=== PATIENT | male | born 1930 | race Caucasian/White ===

== ENCOUNTER 2018-02-20 10:58 | Emergency (ER) | payer MEDICARE ==
[2018-02-20 11:21] LABS: BASOPHILS % (AUTO) 0.5 % (0.0-5.0); LYMPHOCYTES % (AUTO) 11.9 % (21.0-51.0); MEAN CORPUSCULAR HEMOGLOBIN 30.9 pg (27.0-33.0); MEAN CORPUSCULAR HGB CONC 34.3 g/dL (32.0-36.0); MEAN CORPUSCULAR VOLUME 90.2 fL (79-99); MONOCYTES % (AUTO) 5.2 % (3.0-13.0); NEUTROPHILS % (AUTO) 78.4 % (40.0-77.0); PLATELET COUNT (AUTO) 98 K/uL (130-400); RED BLOOD CELL COUNT(AUTO) 4.55 MIL/uL (4.50-6.20); RED CELL DISTRIBUTION WIDTH 14.5 % (11.0-15.5); WHITE BLOOD COUNT (AUTO) 7.4 K/uL (4.8-10.8)
[2018-02-20 11:31] LABS: CREATININE 1.8 mg/dL (0.5-1.5); POTASSIUM 4.4 mmol/L (3.5-5.1)
[2018-02-20 11:44] LABS: ALBUMIN 3.8 g/dL (3.5-5.0); CREATINE KINASE MB 2.2 ng/mL (0.5-3.6); TOTAL PROTEIN, SERUM 7.5 g/dL (6.0-8.3)
[2018-02-20 11:50] LABS: INR 1.33 (0.85-1.15); PARTIAL THROMBOPLASTIN TIME 30.6 SEC (26.3-35.5); PROTHROMBIN TIME 13.9 SEC (9.6-11.6)
[2018-02-20 12:04] LABS: B-TYPE NATRIURETIC PEPTIDE 325 pg/mL (0-100)
[2018-02-20] MEDS ORDERED: FUROSEMIDE 10 MG/ML 2ML VIAL ONE (12:43)
[2018-02-20] MEDS ORDERED: FUROSEMIDE 10 MG/ML 4ML VIAL ONE (12:43)
== END 2018-02-20 13:19 | disposition home or self-care (01) ==
LOC: EDH 10:58
DX: R51 Headache (principal); R07.9 Chest pain, unspecified; R06.02 Shortness of breath; R42 Dizziness and giddiness; I48.91 Unspecified atrial fibrillation; Z88.6 Allergy status to analgesic agent; Z79.82 Long term (current) use of aspirin
CPT/HCPCS: 36415; 70450; 71045; 80053; 82550; 82553; 83880; 84484; 85025; 85610; 85730; 93005; 96374; 99285; J1940 ×2